=== PATIENT | female | born 1980 | race Caucasian/White ===

== ENCOUNTER 2017-09-25 08:02 | Inpatient (IN) | payer OTHER ==
[2017-09-25] MEDS ORDERED: Dinoprostone* 10 MG VAG.SUPP VAGINAL ONE ×2 (08:31→21:15)
--- NOTE | 2017-09-25 09:38 | HP ---
General Information - General Information Maternal Age: 37 Grav: 1 Para: 0 SAB: 0 IEA: 0 Estimated Due Date: 09/27/17 Determined By: Early Ultrasound Gestational Age in Weeks/Days: 39-5/7 Maternal Blood Type and Rh: AB Negative - Results this Serology/RPR Result: Non-Reactive Rubella Result: Immune HBsAg Result: Negative HIV Result: Negative GBS Culture Result: Negative Past Medical History Delivery History: See Records Delivery History Comment: primip Pertinent Past Medical History: See Records Past Medical History Comment: Ulcerative colitis: Followed by GI. MFM consult in with recommendation to deliver by RE[facility]AN Depression/Anxiety: Currently on Prozac with good benefit OCD: Discontinued medication mgmt in Migraine: Rare Arthritis: Knees Eczema Environmental allergies (dust, mold) Pertinent Past Surgical History: None Pertinent Family History: See Records Family History Comment: Father: HTN, CAD Mother: Hepatitis PGM: . Lung cancer PGF: . Lung cancer MGM: . Lung cancer MGF: . Vascular dementia - Antepartal Records Antepartal Records: Reviewed, Uncomplicated Review of Systems Constitutional: Comfortable CV Complaint: No Gastrointestinal: No Nausea/Vomiting, Normal Bowel Movement Genitourinary: No Dysuria, No Bleeding, No Leaking Fluid Musculoskeletal: No Complaint Neurological: No Headache Movement: Normal Exam Allergies/Adverse Reactions: Allergies No Known Allergies Allergy (Verified 09/27/12 01:21) BP 124/82 HR 90 RR 20 T 97.5 - Measurements Height: 5 ft 9 in Weight: 219 lb Weight in lbs: 219.451141 Body Mass Index (BMI): 32.3 Pre- Weight: 184 lb Weight Gained This : 35 lbs and 0 ozs - Exam Breast: Breast Exam Deferred CVA: No CVA Tenderness Extremities: No Edema Heart: Normal Rhythm/Heart Sounds HEENT: No Significant Findings Lungs: Clear Bilaterally Rectal: Rectal Exam Deferred Reflexes: DTR 2+ Thyroid: No Thyromegaly - Abdominal Exam Abdomen Exam: Non-Tender - Ultrasound/Biophysical Profile Ultrasound Status: Not Done Targeted Exam Findings See L&D Outpatient Visit Provider Note for Findings: N/A Estimated Weight: EFW 8lbs 8oz by sono 09/21/17 Cervical Exam: Closed Effacement: Thick Presenting Part: Vertex Membrane Status: Intact Sterile Speculum Exam: Not done Bleeding/Discharge: None EFM Findings - External Monitor Findings Baseline Heart Rate: 145 External Monitor Findings: Accelerations Present, No Pattern of Variable or Late Decelerations, Variability Moderate, Baseline Stable External Monitor Findings Comment: No evidence of metabolic acidemia Contractions: None Assessment/Plan - Assessment IUP at 39-5/7 here for term ripening/IOL - Obstetrical Risk Factors Risk Factors Comment: Personal hx ulcerative colitis - Plan Plan: Cervical Ripening Plan Comment: Lengthy review of options for cervical ripening including discussion of Cervidil vs. Misoprostol. Pt and FOB consent to trial of Cervidil. Placed at 0926 without difficulty. Will continue to monitor per protocol and plan to remove in 12 hours or sooner PRN onset active labor, tachysystole, concerns. - Date/Time of Admission Date of Admission: 09/25/17 Time of Admission: 08:10
[2017-09-25] MEDS ORDERED: Acetaminophen TAB* 325 MG PO ONE (21:00)
--- NOTE | 2017-09-25 21:38 | PN ---
Progress Note - Progress Note Date of Service: 09/25/17 Note: S: Pt resting comfortably in bed after 12 hours with Cervidil in. Reports some mild cramping and vaginal pressure from Cervidil string but no pain and otherwise no concerns. Describes active FM O: BP 113/80 HR 90 T 98.7 SpO2 98% on RA FHT: 135bpm. Moderate variability. +Accels. No decels. UCs q 2-7 min, mild VE: Cervidil removed. Remainder of exam deferred until placement of next Cervidil in 1 hour A: IUP at 39-5/7 here for cervical ripening for term IOL No evidence of metabolic acidemia P: Rest for one hour then re-evaluate. Consider repeat Cervidil if indicated per VE at that time.
--- NOTE | 2017-09-25 22:44 | PN ---
Progress Note - Progress Note Date of Service: 09/25/17 Note: Quick Note VE: unchanged. Repeat cervidil placed. Will monitor per protocol and remove in 12 hours or sooner PRN. Discussed options for assisting with sleep. Pt requests option for Nubain/Phenergan. Orders input.
[2017-09-25] MEDS ORDERED: Nalbuphine* 10 MG/ML 1 ML VIAL IM ONE (22:45)
[2017-09-25] MEDS ORDERED: Promethazine INJ(RESTRICTED)* 25 MG/ML 1 ML VIAL IM ONE (22:45)
[2017-09-26] MEDS ORDERED: Acetaminophen TAB* 325 MG ONE (07:48)
[2017-09-26] MEDS: Acetaminophen TAB* 325 MG PO ONE ×2 (07:51→16:49)
--- NOTE | 2017-09-26 07:51 | PN ---
Progress Note - Progress Note Date of Service: 09/26/17 Note: S: Pt tearful and anxious about increasing vaginal discomfort with Cervidil in place. Reports that it feels like thousands of tiny cuts. Reports increasing anxiety and fear of any sort of vaginal exam including removal of Cervidil. Wondering if these sensations are normal and what options she has for pain relief. O: BP 105/70 HR 89 T 98.6 FHT: 145bpm. Moderate variability. +Accels. No decels UCs mild, irregular VE: Deferred. Pt given option to self remove Cervidil at this time. Counseled on removal and successful removal witnessed A: IUP at 39-6/7 here for term ripening/IOL Vaginal irritation secondary to Cervidil x 2 No evidence of metabolic acidemia P: Pt calmed once Cervidil self removed. Discussed ongoing comfort measures including application of sterile gel, ice, Tylenol for pain. Pt will try all but prefers to self administer the sterile gel. Lengthy review of options for management of early labor including limited or no vaginal exams. Discussed options going forward including trial of oral medication for cervical ripening as long as she's not dimas too much. Many reassurances given. Report to Tye Paul CNM who will assume care at 0800.
[2017-09-26] MEDS ORDERED: Simethicone TAB* 80 MG TAB.CHEW PO PRN (07:56)
[2017-09-26] MEDS: FLUoxetine CAP* 10 MG PO SCH (08:07)
[2017-09-26] MEDS ORDERED: Acetaminophen TAB* 325 MG PO ONE (10:00)
[2017-09-26] MEDS ORDERED: fentaNYL* 50 MCG/ML 2 ML VIAL (100 MCG VIAL) ONE ×2 (11:23→19:27)
[2017-09-26] MEDS ORDERED: OBEPIDURAL* 250 ML EPIDURAL ONE (11:23)
[2017-09-26 11:37] LABS: ABS Basophils 0.1 10^3/ul (0-0.2); ABS Eosinophils 0 10^3/ul (0-0.6); ABS Lymphocytes 0.7 10^3/ul (1.0-4.8); ABS Monocytes 0.8 10^3/ul (0-0.8); ABS Neutrophils 13.4 10^3/ul (1.5-7.7); ABS Nucleated RBC 0 10^3/ul; Eosinophil % 0.2 % (0-6); Hematocrit 39 % (35-47); Hemoglobin 13.3 g/dl (12.0-16.0); Lymphocyte % 4.8 % (25-47); Mean Corpuscular HGB Conc 34 g/dl (31-36); Mean Corpuscular Hemoglobin 29 pg (27-31); Mean Corpuscular Volume 84 fL (80-97); Nucleated Red Blood Cells % 0.3; Platelet Count 274 10^3/ul (150-450); Red Blood Count 4.61 10^6/ul (4.00-5.40); Red Cell Distribution Width 13 % (10.5-15)
[2017-09-26] MEDS ORDERED: Phenylephrine IV* 40 MCG/ML 10 ML SYRINGE IV PUSH PRN ×2 (12:17)
[2017-09-26] MEDS ORDERED: Sodium Citrate/Citric Acid* 15 ML UDC PO PRN (12:17)
[2017-09-26] MEDS ORDERED: Famotidine TAB* 20 MG PO PRN (12:17)
[2017-09-26] MEDS: OBEPIDURAL* 250 ML EPIDURAL SCH (13:00)
--- NOTE | 2017-09-26 13:08 | PN ---
Progress Note - Progress Note Date of Service: 09/26/17 - Note time 1045 SOAP: Subjective: [Patient reports nausea, has been vomiting, not coping with contractions and would like epidural] Objective: [VSS, afebrile FHT 145, +accels, no decels, mod cindy UCs q 3-4 min, strong] Assessment: [Active labor] Plan: [Patient declines VE at this time. Initiate IV, send labs, anesthesiology paged]
--- NOTE | 2017-09-26 13:20 | PN ---
Progress Note - Progress Note Date of Service: 09/26/17 SOAP: Subjective: [Patient comfortable with epidural, agrees to cervical exam.] Objective: [VSS, afebrile FHT 155, Cat 1 VE 9cm/100/+1 UCs difficult to monitor, approx Q4-5] Assessment: [IUP @ 39+6 for IOL Active labor No evidence metabolic acidemia] Plan: [Anticipate SVB. Consider pitocin for augmentation PRN]
--- NOTE | 2017-09-26 14:27 | PN ---
Progress Note - Progress Note Date of Service: 09/26/17 SOAP: Subjective: [Comfortable and dozing] Objective: [VSS, afebrile FHT 150, Cat 1 UCs difficult to monitor, approx Q 4-5 VE /0 ] Assessment: [Complete] Plan: [Labor down, anticipate trial of pushing soon]
[2017-09-26] MEDS ORDERED: Oxytocin in LR* 20 UNITS/1,000 ML BAG IVPB ONE (15:40)
[2017-09-26] MEDS ORDERED: Oxytocin in LR* 20 UNITS/1,000 ML BAG IVPB SCH (16:00)
[2017-09-26] MEDS ORDERED: ceFOXitin 2 GM IVPREMIX* 2 GM/50 ML BAG IVPB ONE (18:02)
[2017-09-26] MEDS ORDERED: ceFOXitin 2 GM IVPREMIX* 2 GM/50 ML BAG ONE (18:08)
[2017-09-26] MEDS ORDERED: Chloroprocaine 3%* 20 ML VIAL ONE (18:19)
[2017-09-26] MEDS ORDERED: OXYTOCIN* 10 UNITS/ML 1 ML VIAL ONE (18:22)
[2017-09-26] MEDS ORDERED: Dexamethasone IV* 4 MG/ML 1 ML (4 MG) ONE (18:22)
[2017-09-26] MEDS ORDERED: Ondansetron INJ* 2 MG/ML VIAL ONE (18:22)
[2017-09-26] MEDS ORDERED: Phenylephrine INJ* 10 MG/ML 1 ML VIAL (10 MG) ONE (18:23)
--- NOTE | 2017-09-26 18:25 | PN ---
Progress Note - Progress Note Date of Service: 09/26/17 SOAP: Subjective: [Patient in Labor with full term .] Objective: [Complete cervical dilation for greater than 3 hrs and arrest disorder on pitocin started after complete dilation. Maternal fever and persistent tachycardia ] Assessment: [Patients s/sx are c/w chorioamnionitis, persistent xcategory 3 tracing, arrest disorder in labor.] Plan: [Recommendation- section for arrest d/o and persistent cat 3 tracing. I had a thorough discussion with the patient and family members regarding her clinical s/sx, diagnosis and treatment/managemnt options. They are aware of the material risks/benefits, common side effects/complications, indications/contraindications of the procedure/treatment proposeda nd its relevant alternatives prior to consent.]
[2017-09-26] MEDS ORDERED: Bupivacaine-MPF SPINAL* 7.5 MG/ML - 2ML AMP ONE (18:26)
[2017-09-26] MEDS ORDERED: Morphine PF AMP (0.5MG/ML)* 5 MG/10 ML AMP ONE (18:26)
[2017-09-26] MEDS ORDERED: Acetaminophen IV 1GM/100ML * 1,000 MG/100 ML VIAL IVPB ONE (19:17)
[2017-09-26] MEDS ORDERED: fentaNYL* 50 MCG/ML 2 ML VIAL (100 MCG VIAL) IV PRN (19:17)
[2017-09-26] MEDS ORDERED: oxyCODONE TAB* 5 MG TAB PO PRN ×2 (19:17→19:19)
[2017-09-26] MEDS ORDERED: Naloxone* 0.4 MG/ML 1 ML VIAL IV PRN ×2 (19:17→19:19)
[2017-09-26] MEDS ORDERED: DiMENhydriNATE IV* 50 MG/ML VIAL IV PUSH PRN (19:17)
[2017-09-26] MEDS ORDERED: PROCHLORPERAZINE INJ 5 MG/ML 2 ML VIAL IV PRN (19:19)
[2017-09-26] MEDS ORDERED: Nalbuphine* 10 MG/ML 1 ML VIAL IV PRN (19:19)
[2017-09-26] MEDS ORDERED: Ondansetron INJ* 2 MG/ML VIAL IV PRN (19:19)
[2017-09-26] MEDS ORDERED: Ketorolac INJ* 30 MG/ML 1 ML VIAL ONE (19:32)
[2017-09-26] MEDS ORDERED: Ketorolac INJ* 30 MG/ML 1 ML VIAL IV SCH (20:00)
[2017-09-26] MEDS ORDERED: Dibucaine 1% 28.35 GM TUBE PR PRN (20:01)
[2017-09-26] MEDS ORDERED: Glycerin ADULT SUPP PR PRN (20:01)
[2017-09-26] MEDS ORDERED: Zolpidem TAB* 5 MG PO PRN (20:01)
[2017-09-26] MEDS ORDERED: Witch Hazel PAD* JAR TOPICAL PRN (20:01)
[2017-09-26] MEDS ORDERED: GENTAMICIN ADULT IVPB ONE (21:00)
[2017-09-26] MEDS ORDERED: NS 0.9% IVPB ONE (21:00)
--- NOTE | 2017-09-26 21:19 | PN ---
Progress Note - Progress Note Date of Service: 09/26/17 - Note time 6545 SOAP: Subjective: [Patient does not feel ctx] Objective: [Palpation by RN for 15 min with no ctx felt FHT 155 Cat 1 VSS] Assessment: [Insufficient ctx] Plan: [Begin low-dose pitocin]
--- NOTE | 2017-09-26 21:28 | PN ---
Progress Note - Progress Note Date of Service: 09/26/17 - Note time 1620 SOAP: Subjective: [Patient now feeling ctx somewhat. Coached by RN on pushing with some.] Objective: [FHT 170 baseline, +accels, no decels, variability mod Pitocin @ 4 VSS, temp 99.2 UCs q 4-5 min] Assessment: [Cat 2 FHT] Plan: [Fluid bolus Consider decreasing epidural rate by anesthesiologist Continue changing position with pushing] 975mg Tylenol
--- NOTE | 2017-09-26 21:33 | PN ---
Progress Note - Progress Note Date of Service: 09/26/171749 SOAP: Subjective: [Patient coping well, pushing in multiple positions] Objective: [FHT 180s-200s, variable decels, min cindy Pitocin @ 8 VSS, max temp 100.0 Pushing without further descent] Assessment: [Effective pushing, possible malposition Cat 2 FHT] Plan: [Discussed concern for continued pushing given heart tones, advised consult with Dr Rasmussen, patients in agreement.]
[2017-09-27] MEDS: FLUoxetine CAP* 10 MG PO SCH ×2 (00:24→21:06)
[2017-09-27] MEDS: Simethicone TAB* 80 MG TAB.CHEW PO SCH ×5 (00:25→21:06)
[2017-09-27] MEDS: Docusate CAP* 100 MG PO SCH ×4 (00:26→21:06)
[2017-09-27] MEDS: Ampicillin IV* 2 GM in NS 0.9% 100 ML* 100 ML IVPB SCH ×5 (00:28→20:21)
[2017-09-27] MEDS ORDERED: Acetaminophen TAB* 325 MG PO SCH (04:00)
[2017-09-27] MEDS: Ketorolac INJ* 30 MG/ML 1 ML VIAL IV SCH ×4 (05:02→20:59)
[2017-09-27 06:59] LABS: ABS Basophils 0 10^3/ul (0-0.2); ABS Eosinophils 0 10^3/ul (0-0.6); ABS Lymphocytes 0.7 10^3/ul (1.0-4.8); ABS Monocytes 1.2 10^3/ul (0-0.8); ABS Neutrophils 15.9 10^3/ul (1.5-7.7); ABS Nucleated RBC 0 10^3/ul; Eosinophil % 0 % (0-6); Hematocrit 31 % (35-47); Hemoglobin 10.6 g/dl (12.0-16.0); Lymphocyte % 3.8 % (25-47); Mean Corpuscular HGB Conc 34 g/dl (31-36); Mean Corpuscular Hemoglobin 29 pg (27-31); Mean Corpuscular Volume 84 fL (80-97); Mean Platelet Volume 8.5 um3 (7.4-10.4); Nucleated Red Blood Cells % 0; Platelet Count 200 10^3/ul (150-450); Red Blood Count 3.67 10^6/ul (4.00-5.40); Red Cell Distribution Width 14 % (10.5-15); White Blood Count 17.8 10^3/ul (3.5-10.8)
[2017-09-27] MEDS: Ferrous Gluconate TAB* 324 MG TAB PO SCH (09:00)
[2017-09-27] MEDS ORDERED: Acetaminophen TAB* 325 MG PO PRN (11:00)
[2017-09-27] MEDS: oxyCODONE/Acetamin 5/325 MG* TAB PO PRN ×2 (14:37→18:40)
[2017-09-27] MEDS ORDERED: Ibuprofen TAB* 600 MG ONE (17:24)
[2017-09-27] MEDS: OBEPIDURAL* 250 ML EPIDURAL SCH (21:00)
[2017-09-27] MEDS: Ibuprofen TAB* 600 MG PO PRN (23:27)
[2017-09-28] MEDS: oxyCODONE/Acetamin 5/325 MG* TAB PO PRN ×5 (01:15→21:43)
[2017-09-28] MEDS: Ferrous Gluconate TAB* 324 MG TAB PO SCH (05:30)
[2017-09-28] MEDS: Ibuprofen TAB* 600 MG PO PRN ×3 (07:56→20:35)
[2017-09-28] MEDS: Docusate CAP* 100 MG PO SCH ×3 (08:33→20:36)
[2017-09-28] MEDS: Simethicone TAB* 80 MG TAB.CHEW PO SCH ×3 (08:33→20:35)
--- NOTE | 2017-09-28 10:32 | PTEDU ---
Patient Name: MARK MAJOR MARK MAJOR selected video: BBOB: Bonding Through Infant Massage to view on 09/28/2017 at 10:30:5 3 AM [id number]
--- NOTE | 2017-09-28 10:41 | PTEDU ---
Patient Name: MARK MAJOR MARK MAJOR selected video: BBOB: Nurturing Your Gorgeous &Growing Baby by to view on 09/28/2017 at 10:40:57 [id number]
[2017-09-29] MEDS: Ibuprofen TAB* 600 MG PO PRN ×2 (02:54→08:52)
--- NOTE | 2017-09-29 03:56 | OP ---
DATE OF OPERATION: 09/26/17 - ROOM #102 DATE OF : 84 SURGEON: Leobardo Rasmussen MD VISUAL ARTS TEACHER: Kassy Paul, certified nurse forest resource specialist. ANESTHESIA: Spinal. PRE-OP DIAGNOSES: at 39 weeks, in labor with arrest of descent, chorioamnionitis, and persistent category 3 tracing tachycardia. POST-OP DIAGNOSES: at 39 weeks, in labor with arrest of descent, chorioamnionitis, and persistent category 3 tracing tachycardia along with the deep transverse arrest. OPERATIVE PROCEDURE: Primary low-transverse section with vacuum assistance for a head delivery. FINDINGS: Delivery of a viable male with Apgars of 8 and 9, weighing 8 pounds 7 ounces, was noted to be the deep transverse arrest. The placenta was grossly intact and it was sent to Pathology. The uterus, adnexa, bowel, and bladder were all within normal limits and there were no complications. ESTIMATED BLOOD LOSS: 700 mL. IV FLUIDS: She received 1600 mL of IV crystalloid fluid. URINE OUTPUT: Clear. DESCRIPTION OF PROCEDURE: The patient was taken to the operating room, where she was identified. She was placed on the operating table where a spinal anesthetic was obtained without difficulty. She was placed in the supine position with a leftward tilt, prepped, and draped in a normal sterile fashion. A Pfannenstiel skin incision was then made with a knife and carried through to the underlying layer of fascia. The fascia was nicked in the midline, extended laterally with curved Sherman scissors. The fascia was grasped superiorly and inferiorly with Uli clamps and dissected off sharply from the rectus muscle. The rectus muscle was in the midline bluntly. The peritoneum was identified, grasped with pickups, entered sharply with Metzenbaum scissors and extended superiorly and inferiorly sharply. A bladder blade was then inserted into the patient's abdomen. A bladder flap was created using Metzenbaum scissors, over which the bladder blade was then reinserted. A low-transverse incision was made with a knife, extended laterally with bandage scissors. Amniotic fluid was noted to be clear. The 's head was noted to be deep within the pelvis in transverse position. The bed was then placed in slight Trendelenburg position, however, to disengage the head from the pelvis and was then delivered using vacuum extraction of the head. The rest of the 's body was then delivered. The cord was clamped and cut, and the was handed off to the awaiting bacon slicer. Cord bloods were obtained. The placenta was removed manually. The uterus was then exteriorized and cleared of all clots and debris using moist laparotomy sponges. The uterine incision was then closed using 0 Polysorb suture in a running locked fashion with a second imbricating layer of 0 Polysorb suture with good hemostasis noted. The uterus was then returned to the patient's abdomen. The gutters were then cleared of all clot and debris using moist laparotomy sponges. The peritoneum was then closed with 3-0 Polysorb suture in a running fashion. The fascia was closed using 0 Polysorb suture in a running fashion and subcuticular layer of the Flaco's fascia was closed using interrupted 3-0 Polysorb sutures, and the skin was closed with a 4-0 Monocryl subcuticular stitch. The patient tolerated the procedure well. Sponge, lap, and needle counts were correct x2. She was then transferred to the recovery room area in stable condition. [id number]/[facility] #: [id number] [facility]
[2017-09-29] MEDS: oxyCODONE/Acetamin 5/325 MG* TAB PO PRN ×2 (04:45→12:52)
[2017-09-29] MEDS: Simethicone TAB* 80 MG TAB.CHEW PO SCH (08:52)
[2017-09-29 09:02] VITALS: BP 118/85
[2017-09-29] MEDS: Docusate CAP* 100 MG PO SCH (10:24)
== END 2017-09-29 12:57 | disposition home or self-care (01) | DRG 765 ==
LOC: MCHOBOUT 08:02 → MCHOB 08:10
PROVIDERS: ADMIT Midwife; ATTEND Midwife
PROC: 10D00Z1 Extraction of Products of Conception, Low, Open Approach (ICD-10-PCS; 2017-09-26)
PROC: 4A1HXCZ Monitoring of Products of Conception, Cardiac Rate, External Approach (ICD-10-PCS; 2017-09-26)
PROC: 3E0P7VZ Introduction of Hormone into Female Reproductive, Via Natural or Artificial Opening (ICD-10-PCS; principal; 2017-09-26 18:25)
DX: O99.344 Other mental disorders complicating childbirth (principal); O41.1230 Chorioamnionitis, third trimester, not applicable or unspecified; K51.90 Ulcerative colitis, unspecified, without complications; O75.2 Pyrexia during labor, not elsewhere classified; Z37.0 Single live birth; F41.9 Anxiety disorder, unspecified; F32.9 Major depressive disorder, single episode, unspecified; Z91.048 Other nonmedicinal substance allergy status; O99.62 Diseases of the digestive system complicating childbirth; Z82.49 Family history of ischemic heart disease and other diseases of the circulatory system; Z80.1 Family history of malignant neoplasm of trachea, bronchus and lung; Z82.0 Family history of epilepsy and other diseases of the nervous system; Z83.1 Family history of other infectious and parasitic diseases; Z3A.39 39 weeks gestation of pregnancy; O76 Abnormality in fetal heart rate and rhythm complicating labor and delivery; O62.1 Secondary uterine inertia; N89.8 Other specified noninflammatory disorders of vagina; O75.89 Other specified complications of labor and delivery; O64.0XX0 Obstructed labor due to incomplete rotation of fetal head, not applicable or unspecified
CPT/HCPCS: 36415; 59200; 85025; 86850; 86900; 86901; 87070; 88307; A9270-GY; J0290; J0694; J1100; J1580; J1885; J2300; J2400; J2405; J2550; J2590; J3010